=== PATIENT | female | born 1970 | race Two or more races ===

== ENCOUNTER 2025-01-31 15:57 | Outpatient (CLI) | payer OTHER | END 2025-01-31 16:00 | disposition home or self-care (01) | LOC: SONOGRAMA 15:57 | PROVIDERS: ATTEND Pathology Anatomic Pathology & Clinical Pathology | DX: D34 Benign neoplasm of thyroid gland (principal); E07.89 Other specified disorders of thyroid; E03.9 Hypothyroidism, unspecified ==